=== PATIENT | male | born 1940 | race American Indian/Alaskan Native ===

== ENCOUNTER 2016-08-05 12:25 | Day surgery (SDC) | payer MEDICARE, OTHER ==
[2016-08-03 14:41] LABS: Basophils % (Auto) 0.7 % (0.0-1.8); Eosinophils % (Auto) 10.1 % (0.0-4.3); Hematocrit 41.3 % (35.5-45.6); Hemoglobin 13.6 gm/dl (11.8-15.2); Mean Corpuscular HGB Conc 33 % (32-34); Mean Corpuscular Hemoglobin 30 pg (28-32); Mean Corpuscular Volume 91 fl (84-94); Platelet Count 217 K/mm3 (140-440); Red Blood Count 4.54 M/mm3 (3.65-5.03); Red Cell Distribution Width 12.7 % (13.2-15.2); White Blood Count 5.8 K/mm3 (4.5-11.0)
[2016-08-03 14:51] LABS: INR 1.01 (0.87-1.13)
[2016-08-03 14:52] LABS: Partial Thromboplastin Time 43.4 Sec. (24.2-36.6)
[2016-08-03 14:58] LABS: Alanine Aminotransferase 30 units/L (7-56); Albumin 4.1 g/dL (3.9-5); Albumin/Globulin Ratio 1.3 %; Alkaline Phosphatase 64 units/L (35-129); BUN/Creatinine Ratio 22.22; Bilirubin,Total 0.2 mg/dL (0.1-1.2); Blood Urea Nitrogen 20 mg/dL (9-20); Calcium 9.7 mg/dL (8.4-10.2); Carbon Dioxide 29 mmol/L (22-30); Chloride 100.5 mmol/L (98-107); Glucose 111 mg/dL (75-100); Potassium 4.3 mmol/L (3.6-5.0); Sodium 140 mmol/L (137-145); Total Protein 7.3 g/dL (6.3-8.2)
[2016-08-03 14:59] LABS: Anion Gap 15 mmol/L
[~2016-08-05 12:25] MED LIST: ANCEF/STERILE WATER 2 GM/20 ML IV NR; NACL 0.9% 1000 ML 1,000 ML ONE
[2016-08-05] MEDS ORDERED: NACL BACTERIOSTATIC INFILTRATI ONE (13:01)
--- NOTE | 2016-08-05 13:10 | Anesthesia Consultation ---
Anesthesia Consult and Med Hx Date of service: 08/05/16 - Airway Anesthetic Teeth Evaluation: Dentures ROM Head & Neck: Adequate Mental/Hyoid Distance: Adequate Mallampati Class: Class II Intubation Access Assessment: Probably Good - Pulmonary Exam CTA: Yes - Cardiac Exam Cardiac Exam: RRR - Pre-Operative Health Status ASA Pre-Surgery Classification: ASA3 Proposed Anesthetic Plan: General - Pulmonary Hx Smoking: Yes (3/4 PPD X 30 YRS) COPD: Yes (?-ON INHALER,BUT DOES NOT KNOW WHY) Hx Sleep Apnea: No (PHIL PRE SCREEN HIGH RISK) - Cardiovascular System Hx Hypertension: Yes (X 4 YRS) Hx Peripheral Vascular Disease: Yes (?-JESSICA ARMS ALWAYS COLD) - Central Nervous System CVA: Yes (5 YRS AGO-UNABLE TO SPEAK WELL,JESSICA LEG WEAKNESS)
--- NOTE | 2016-08-05 13:10 | Anesthesia Day of Surgery ---
Anesthesia Day of Surgery - Day of Surgery Patient Examined: Yes Patient H&P Reviewed: Yes Patient is NPO: Yes Beta Blockers: Yes
[2016-08-05] MEDS ORDERED: PERCOCET 5/325 PO PRN (13:11)
[2016-08-05 13:52] LABS: INR 1.07 (0.87-1.13)
[2016-08-05 13:53] LABS: Partial Thromboplastin Time 41.7 Sec. (24.2-36.6)
[2016-08-05] MEDS ORDERED: VERSED IV NR (14:00)
[2016-08-05] MEDS ORDERED: PEPCID PO NR (14:00)
[2016-08-05] MEDS ORDERED: NACL 0.9% 1000 ML 1,000 ML IV SCH (14:00)
[2016-08-05] MEDS ORDERED: SUBLIMAZE ONE (14:44)
[2016-08-05] MEDS ORDERED: DIPRIVAN 10 MG/ML IV ONE (14:44)
[2016-08-05] MEDS ORDERED: GARAMYCIN/NS 80 MG/100 ML 100 ML IV SCH (15:00)
[2016-08-05] MEDS ORDERED: ePHEDrine SULFATE ONE (15:43)
--- NOTE | 2016-08-05 15:46 | Post Operative Note ---
Pre-op diagnosis: prostate cancer Post-op diagnosis: same Findings: as above Procedure: cysto cryoablation prostate Anesthesia: GETA Surgeon: STANISLAW AMARO Estimated blood loss: minimal Pathology: none Condition: stable Disposition: PACU
--- NOTE | 2016-08-05 15:48 | Discharge Summary ---
Short Stay Discharge Plan Activity: other (no straining ) Weight Bearing Status: Full Weight Bearing Diet: low fat, low cholesterol, low salt Wound: other (in rr and 24 hrs ) Special Instructions: other (ice .. [facility] ) Durable Medical Equipment Needed Upon Discharge: other ([facility] ) Follow up with: BEBETO HURTADO MD [Primary Care Provider] - 7 Days STANISLAW AMARO MD [Staff Physician] - 7 Days
[2016-08-05] MEDS ORDERED: NEO SYNEPHRINE/NS Syringe(OR USE) IV ONE (15:53)
[2016-08-05] MEDS ORDERED: NACL 0.9% IR ONE (15:55)
[2016-08-05] MEDS ORDERED: WATER FOR IRRIG STERILE IR ONE (15:55)
[2016-08-05] MEDS ORDERED: NACL 0.9% 1000 ML IR ONE (16:31)
[2016-08-05] MEDS ORDERED: ZOFRAN ONE (17:23)
[2016-08-05] MEDS: DILAUDID IV PRN ×2 (18:28→19:24)
[2016-08-05 21:01] VITALS: BP 129/64
--- NOTE | 2016-08-05 22:03 | Operative Report ---
PREOPERATIVE DIAGNOSIS: Adenocarcinoma of the prostate, left lobe. POSTOPERATIVE DIAGNOSIS: Adenocarcinoma of the prostate, left lobe. PROCEDURE: Cystoscopy, cryoablation of prostate. SURGEON: David Jacome MD ANESTHESIA: General. FINDINGS: This is a gentleman with prostate cancer. He now presents for cryoablation of the prostate. He has a small gland and low volume disease. DESCRIPTION OF PROCEDURE: The patient brought to the operating room and placed on the table. Following induction of anesthesia, placed in lithotomy position, prepped and draped in the usual sterile fashion. A Sloan catheter was placed, and the ultrasound unit was placed and the gland measured approximately 21 g. Using the software, we marked out places for the six probes. We had to modify it because the gland would move. We placed probes 1 and then Denonvilliers probe for the temperature and the external sphincter and then probed 2, 5, 6, and then 3 and 4. Excellent placement was achieved. We kept checking both the images to be sure we were in the right measurements. We set the probe at 3 to 3-1/2 based on the location. We also wanted to make sure there was more freeze on the left side. At this point, once we were sure everything was in position and as before we even placed the cryoprobes, we checked the needle and at this point, the freezing was started. We started at 1 and 2, then went down to 3, 4, 5, and 6. Denonvilliers temperature went to about 20, but we had an excellent freeze in a slow symmetrical fashion. We had a little more cold on the left side as that was where the cancer was. A second thaw was carried out in a symmetrical second freeze was carried out. The patient tolerated the procedure well. At that time, we repositioned Denonvilliers in the gland basically on the right side. For that got to about 0. The patient tolerated the procedure well. There were no complications. Excellent visualization and a Sloan catheter was easily placed at the conclusion, after the second thaw and a 15-20 minute warm. He was brought to recovery in stable condition. Family notified. JOB# [id number] ARTEMIO/LAKSHMI
== END 2016-08-05 20:00 | disposition home or self-care (01) ==
LOC: OR 12:25
PROVIDERS: ATTEND Urology
DX: C61 Malignant neoplasm of prostate (principal); E78.00 Pure hypercholesterolemia, unspecified; I10 Essential (primary) hypertension; F17.210 Nicotine dependence, cigarettes, uncomplicated; J44.9 Chronic obstructive pulmonary disease, unspecified; Z86.73 Personal history of transient ischemic attack (TIA), and cerebral infarction without residual deficits; Z86.79 Personal history of other diseases of the circulatory system; Z98.49 Cataract extraction status, unspecified eye; Z98.890 Other specified postprocedural states
CPT/HCPCS: 36415; 55873; 80053; 85025; 85610; 85730; A4217; C2618; J0690; J1170; J1580; J2250; J2370; J2405; J2704; J3010; J7030

== ENCOUNTER 2017-09-01 14:09 | Outpatient (CLI) | payer MEDICARE, OTHER ==
[2017-09-01 14:50] LABS: Alanine Aminotransferase 24 units/L (7-56); Albumin 4.2 g/dL (3.9-5); BUN/Creatinine Ratio 16; Blood Urea Nitrogen 13 mg/dL (9-20); Calcium 9.9 mg/dL (8.4-10.2); Hemolysis Index 5
[2017-09-01 14:51] LABS: Hematocrit 40.6 % (35.5-45.6); Hemoglobin 13.7 gm/dl (11.8-15.2); Mean Corpuscular HGB Conc 34 % (32-34); Mean Corpuscular Hemoglobin 31 pg (28-32); Mean Corpuscular Volume 91 fl (84-94); Platelet Count 236 K/mm3 (140-440); Red Blood Count 4.47 M/mm3 (3.65-5.03); Red Cell Distribution Width 13.8 % (13.2-15.2)
[2017-09-01 15:01] LABS: Free T4 (Free Thyroxine) 1.14 ng/dL (0.76-1.46)
== END 2017-09-01 14:10 | disposition home or self-care (01) ==
LOC: LAB 14:09
PROVIDERS: ATTEND Specialist
DX: G81.91 Hemiplegia, unspecified affecting right dominant side (principal); R47.01 Aphasia; I10 Essential (primary) hypertension; E78.00 Pure hypercholesterolemia, unspecified; J44.9 Chronic obstructive pulmonary disease, unspecified; F17.200 Nicotine dependence, unspecified, uncomplicated; Z79.899 Other long term (current) drug therapy
CPT/HCPCS: 36415; 80053; 82607; 82747; 84439; 84443; 85027

== ENCOUNTER 2017-09-06 15:34 | Outpatient (CLI) | payer MEDICARE, OTHER ==
--- NOTE | 2017-09-13 17:25 | Magnetic Resonance Report ---
MR scan of the cranium was performed without contrast. Pulse sequences included: 1. T1 weighted sagittal and axial images without contrast 2. T2 weighted axial and coronal images 3. FLAIR axial images 4. Diffusion-weighted axial images 5. Apparent diffusion coefficient images 6. Gradient echo axial T2 images Views of the posterior fossa showed a normal craniocervical junction. Cerebellar pontine angles were normal with normal seventh-eighth nerve complexes. Brainstem was normal. Cerebellum showed an area of infarction in the right posterior cerebellar hemisphere. The ventricular system showed mild dilatation of the lateral ventricles especially the posterior horns and more dilation on the left. Images of the hemispheres showed a wedge shaped area of increased signal in the left parieto occipital region. There were small areas of increased signal in the barcenas radiata throughout but more so in the right parieto occipital region. Sinuses, flow voids in the [place], orbits, pituitary and basal ganglia were normal. Impression: Abnormal MR scan of the cranium without contrast. 1. area of infarction in the left parieto occipital region 2. area of infarction in the right cerebellum 3. araiosis -- with more involvement in the right parieto occipital region raising the question of possible infarction 4. colpocephaly -- mild
--- NOTE | 2017-09-13 17:31 | Magnetic Resonance Report ---
MR angiogram was performed of the intracranial circulation 3-D [id number] spoiled grass images were obtained of the intracranial circulation. The images of the carotid arteries showed no areas of occlusion or aneurysmal dilatation. The anterior cerebellar arteries fill from the left with no right anterior communicating artery. The vertebral basilar system showed an absent right vertebral. There was a large skip lesion in the left posterior cerebral artery. The remainder of the posterior circulation was normal. Impression: Abnormal MR angiogram of the intracranial circulation. 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 This may account for the patient's left parieto occipital stroke
--- NOTE | 2017-09-13 17:35 | Magnetic Resonance Report ---
MR angiography is performed of the great vessels of the neck 2-D time of flight spoiled grass images were obtained of the great vessels of the neck. Images of the carotid circulation showed both carotids to be patent but there is a 40% stenosis of the right carotid at the bifurcation. The vertebral arteries show an absent left vertebral. The right vertebral was unremarkable Impression: Abnormal mr angiogram of the cervical arteries a. absent left vertebral b. 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
== END 2017-09-06 15:35 | disposition home or self-care (01) ==
LOC: MRI 15:34
PROVIDERS: ATTEND Specialist
DX: I65.21 Occlusion and stenosis of right carotid artery (principal); I66.22 Occlusion and stenosis of left posterior cerebral artery; I63.8 Other cerebral infarction; G81.91 Hemiplegia, unspecified affecting right dominant side; Q04.8 Other specified congenital malformations of brain; R93.0 Abnormal findings on diagnostic imaging of skull and head, not elsewhere classified; R47.01 Aphasia
CPT/HCPCS: 70544; 70547; 70551